=== PATIENT | female | born 1965 | race Caucasian/White ===

== ENCOUNTER 2017-01-31 11:51 | Emergency (ER) | payer MEDICAID, OTHER ==
[2017-01-31 11:58] VITALS: BP 132/70; PULSE 67; RESP 20; TEMP 97.5; O2SAT 99
[2017-01-31 12:19] LABS: COLOR YELLOW; LEUKOCYTE ESTERASE,URINE 3+ (NEGATIVE); NITRITE,URINE NEGATIVE (NEGATIVE)
[2017-01-31 12:23] LABS: BACTERIA 1+ /hpf (NONE SEEN); RBC,URINE 50-182 /hpf (0-3); WBC,URINE 50-182 /hpf (0-3)
--- NOTE | 2017-01-31 12:28 | EDPHY ---
H & P Time Seen by Provider: 01/31/17 12:21 HPI/ROS: CHIEF COMPLAINT: Urinary complaints HISTORY OF PRESENT ILLNESS: The patient is a 51-year-old female who presents with hematuria. The patient reports cloudy/brownish urine for the past few days. She has mild dysuria at the end of her stream. She complines of mild low abdominal pain. She denies fever. REVIEW OF SYSTEMS: A comprehensive 10 point review of systems is otherwise negative aside from elements mentioned in the history of present illness. Past Medical/Surgical History: Denies. Social History: Lives in [place]. Smoking Status: Never smoked Physical Exam: General Appearance: Alert, pleasant Eyes: Pupils equal and round, no conjunctival pallor or injection Neck: Normal inspection Respiratory: Lungs are clear to auscultation Cardiovascular: Regular rate and rhythm Gastrointestinal: Abdomen is soft and non-tender Neurological: A&O, nonfocal, normal gait Skin: Warm and dry, no rash Extremities: Normal to inspection Psychiatric: Mood and affect normal Constitutional: Initial Vital Signs Temperature (C) 36.4 C 01/31/17 11:56 Heart Rate 67 01/31/17 11:56 Respiratory Rate 20 01/31/17 11:56 Blood Pressure 132/70 H 01/31/17 11:56 O2 Sat (%) 99 01/31/17 11:56 O2 Delivery Mode Room Air Allergies/Adverse Reactions: amoxicillin Allergy (Verified 01/31/17 11:54) Penicillins Allergy (Verified 01/31/17 11:54) Home Medications: Medication Instructions Recorded Cephalexin [Keflex (*)] 500 mg PO QID #20 cap 01/31/17 Medical Decision Making ED Course/Re-evaluation: The patient presents with urinary complaints. She developed hematuria this morning with associated dysuria. She complains of a mild lower abdominal pain. Patient is afebrile. Urinalysis is positive for leukocyte esterase. Plan to discharge patient home with Keflex. - Data Points Laboratory Results: 01/31/17 12:08 Urine Color YELLOW Urine Appearance MODERATELY TURBID Urine pH 5.0 (5.0-7.5) Ur Specific Jewell 1.016 (1.002-1.030) Urine Protein 1+ H (NEGATIVE) Urine Ketones NEGATIVE (NEGATIVE) Urine Blood 3+ H (NEGATIVE) Urine Nitrate NEGATIVE (NEGATIVE) Urine Bilirubin NEGATIVE (NEGATIVE) Urine Urobilinogen NEGATIVE EU EU (0.2-1.0) Ur Leukocyte Esterase 3+ H (NEGATIVE) Urine RBC 50-182 /hpf H /hpf (0-3) Urine WBC 50-182 /hpf H /hpf (0-3) Ur Epithelial Cells TRACE /lpf /lpf (NONE-1+) Urine Bacteria 1+ /hpf H /hpf (NONE SEEN) Urine Glucose NEGATIVE (NEGATIVE) Departure - Departure Disposition: Home, Routine, Self-Care Clinical Impression: Urinary tract infection Qualifiers: Urinary tract infection type: site unspecified Hematuria presence: with hematuria Qualified Code(s): N39.0 - Urinary tract infection, site not specified Condition: Good Instructions: Urinary Tract Infection in Women (ED) Additional Instructions: Take Keflex as directed. I recommend loose clothing and cotton underwear, urinating after intercourse, and drink plenty of fluids. You have been referred to a primary care physician below, please followup as needed. Referrals: Rell Lozano MD [Medical Doctor] - As per Instructions Prescriptions: Cephalexin [Keflex (*)] 500 mg PO QID #20 cap Report Scribed for: Polina Goff Report Scribed by: Betty Torres Date of Report: 01/31/17 Time of Report: 12:25 Physician Review and Approval Statement: 01/31/17 12:25 Portions of this note were transcribed by a medical technologist clinical. I personally performed the history, physical exam, and medical decision-making; and confirmed the accuracy of the information in the transcribed note.
[2017-01-31] MEDS ORDERED: CEPHALEXIN 500 MG CAP PO ONE (12:31)
== END 2017-01-31 12:47 | disposition home or self-care (01) ==
DX: N39.0 Urinary tract infection, site not specified (principal); B96.89 Other specified bacterial agents as the cause of diseases classified elsewhere